=== PATIENT | male | born 1940 | race Caucasian/White ===

== ENCOUNTER 2017-11-06 06:33 | Inpatient (IN) ==
[2017-10-31 12:49] LABS: Basophils % 0.3 % (0.0-0.8); Eosinophils # 0.1 10*3/uL (0.0-0.87); Hematocrit 37.2 VOL% (42.0-52.0); Hemoglobin 12.4 GM/DL (14.0-18.0); Immature Granulocytes % 0.9 %; Immature Granulocytes Absolute 0.06 #; Lymphocytes # 0.6 10*3/uL (1.4-4.0); Lymphocytes % 9.9 % (21.2-54.2); Mean Corpuscular HGB Conc 33.3 GM/DL (32-36); Mean Corpuscular Hemoglobin 31 PG (27-34); Mean Corpuscular Volume 94.2 FL (87-102); Mean Platelet Volume 10.4 FL (9.6-12.0); Monocytes # 0.6 10*3/uL (0.11-0.8); Monocytes % 9.7 % (1.7-12.7); Neutrophils % 77.2 % (38.7-73.9); Platelet Count 194 T/CUMM (130-400); Red Blood Count 3.95 MC/CUMM (3.8-5.5); White Blood Count 6.5 T/CUMM (4-12)
[2017-10-31 13:14] LABS: Band Neutrophils 3 % (0-10); Eosinophils 2 % (0-10); Hypochromasia 2+; Lymphocytes 3 % (20-55); Microcytosis 2+; Segmented Neutrophils 82 % (50-85); Total Cells Counted 100
[2017-10-31 13:15] LABS: Platelet Estimate Adequate
[2017-10-31 13:18] LABS: Calcium 8.8 MG/DL (8.5-10.1); Potassium 4.1 MMOL/L (3.5-5.1)
[~2017-11-06 06:33] MED LIST: HEPARIN 5,000 UNIT/1 ML VIAL ONE; LACTATED RINGERS 1,000 ML IV SCH; LIDOCAINE 1% 20 ML VIAL ONE; LIDOCAINE 2% TOP JELLY 20 ML VIAL INTRAURETH ONE; THROMBIN TOPICAL (RECOMBINANT) 5,000 UNIT VIAL TOP ONE; TISSUE ADHESIVE 1 EACH APPLICATOR TOP ONE; VANCOMYCIN 500 MG VIAL ONE; ceFAZolin 1,000 MG VIAL ONE; ceFAZolin 1,000 MG in SYRINGE 1 EACH IV ONE
[2017-11-06 07:00] LABS: PT Patient Result 10.6 SECS
[2017-11-06] MEDS ORDERED: HEPARIN/NACL 0.9% 2 UNITS/ML 3,000 ML IV ONE (07:10)
[2017-11-06] MEDS ORDERED: LACTATED RINGERS 1,000 ML IV SCH (07:30)
[2017-11-06] MEDS ORDERED: HEPARIN/NACL 0.9% 2 UNITS/ML 1,000 ML IV ONE (10:49)
[2017-11-06] MEDS ORDERED: MORPHINE 4 MG/1 ML VIAL IV PRN (11:28)
[2017-11-06] MEDS ORDERED: ONDANSETRON 4 MG/2 ML VIAL IV PRN (11:28)
[2017-11-06] MEDS ORDERED: PROPOFOL 200 MG/20 ML VIAL IV ONE (12:04)
[2017-11-06] MEDS ORDERED: fentaNYL 100 MCG/2 ML VIAL ONE (12:05)
[2017-11-06] MEDS ORDERED: VECURONIUM 10 MG VIAL IV ONE (12:05)
[2017-11-06] MEDS ORDERED: LACTATED RINGERS 1,000 ML IV ONE (12:05)
[2017-11-06] MEDS ORDERED: MIDAZOLAM 2 MG/2 ML VIAL ONE (12:05)
[2017-11-06] MEDS ORDERED: SODIUM CHLORIDE 0.9% 1,000 ML IV ONE (12:05)
[2017-11-06] MEDS ORDERED: SEVOFLURANE 1 UNIT/15 MINUTE INH ONE (12:05)
[2017-11-06] MEDS ORDERED: SODIUM CHLORIDE 0.9% 250 ML IV ONE (12:05)
[2017-11-06] MEDS ORDERED: ETOMIDATE 40 MG/20 ML VIAL IV ONE (12:05)
[2017-11-06] MEDS ORDERED: PHENYLEPHRINE 10 MG/1 ML VIAL IV ONE (12:05)
[2017-11-06] MEDS ORDERED: HEPARIN/NACL 0.9% 2 UNITS/ML 500 ML IV ONE (12:06)
[2017-11-06] MEDS ORDERED: NITROGLYCERIN DRIP 50 MG/250 ML BOTTLE IV ONE (12:06)
[2017-11-06 12:31] LABS: Hematocrit 31.7 VOL% (42.0-52.0); Hemoglobin 10.4 GM/DL (14.0-18.0)
[2017-11-06 12:57] LABS: Calcium 7.5 MG/DL (8.5-10.1); Potassium 3.7 MMOL/L (3.5-5.1)
[2017-11-06] MEDS ORDERED: MORPHINE ER 30 MG TABLET PO PRN (13:30)
[2017-11-06] MEDS: hydroCHLOROthiazide 12.5 MG CAPSULE PO SCH (14:00)
[2017-11-06] MEDS: LACTATED RINGERS 1,000 ML IV SCH ×3 (14:00→18:42)
[2017-11-06] MEDS ORDERED: GABAPENTIN 300 MG CAPSULE PO SCH (21:00)
[2017-11-07] MEDS: LACTATED RINGERS 1,000 ML IV SCH ×3 (00:43→07:57)
[2017-11-07 07:00] LABS: Basophils % 0.3 % (0.0-0.8); Eosinophils # 0.2 10*3/uL (0.0-0.87); Eosinophils % 2.4 % (0.00-10.9); Hematocrit 31.5 VOL% (42.0-52.0); Hemoglobin 10.5 GM/DL (14.0-18.0); Immature Granulocytes % 0.4 %; Immature Granulocytes Absolute 0.03 #; Lymphocytes # 0.8 10*3/uL (1.4-4.0); Lymphocytes % 11.1 % (21.2-54.2); Mean Corpuscular HGB Conc 33.3 GM/DL (32-36); Mean Corpuscular Hemoglobin 31 PG (27-34); Mean Corpuscular Volume 93.2 FL (87-102); Mean Platelet Volume 10.8 FL (9.6-12.0); Monocytes # 0.7 10*3/uL (0.11-0.8); Monocytes % 10.2 % (1.7-12.7); Neutrophils # 5.1 10*3/uL (1.4-7.4); Neutrophils % 75.6 % (38.7-73.9); Platelet Count 203 T/CUMM (130-400); Red Blood Count 3.38 MC/CUMM (3.8-5.5); Red Cell Distribution Width 12.6 % (9.3-17.3); White Blood Count 6.8 T/CUMM (4-12)
[2017-11-07 07:20] LABS: Calcium 7.9 MG/DL (8.5-10.1); Osmolality,Calculated 282.1 MOS/KG (273-304); Potassium 3.4 MMOL/L (3.5-5.1)
[2017-11-07] MEDS ORDERED: amLODIPine 5 MG TABLET PO SCH (09:00)
[2017-11-07] MEDS ORDERED: CLOPIDOGREL 75 MG TABLET PO SCH (09:00)
[2017-11-07] MEDS ORDERED: OMEGA 3 ACID ETHYL ESTERS 1 GM CAPSULE PO SCH (09:00)
[2017-11-07] MEDS ORDERED: LISINOPRIL 10 MG TABLET PO SCH (09:00)
[2017-11-07] MEDS ORDERED: ASPIRIN EC 81 MG TABLET PO SCH (09:00)
[2017-11-07] MEDS ORDERED: POLYETHYLENE GLYCOL POWDER 17 GM PACK PO SCH (09:00)
[2017-11-07] MEDS: hydroCHLOROthiazide 12.5 MG CAPSULE PO SCH (09:19)
[2017-11-07 11:23] VITALS: BP 183/93
== END 2017-11-07 14:58 | disposition home or self-care (01) | DRG 272 ==
LOC: N.RAD 06:33 → N.SDSINP 06:34 → N.3E 13:09
PROVIDERS: ADMIT Surgery; ATTEND Surgery
PROC: IRERAAA (2017-11-06 07:58)